=== PATIENT | male | born 1995 | race Caucasian/White ===

== ENCOUNTER 2021-03-07 08:00 | Outpatient (CLI) | payer OTHER | END 2021-03-07 23:59 | disposition home or self-care (01) | LOC: LAB.N 08:00 | PROVIDERS: ATTEND Family Medicine | DX: U07.1 COVID-19 (principal) ==

== ENCOUNTER 2022-05-20 08:00 | Outpatient (CLI) | payer OTHER | END 2022-05-20 23:59 | disposition home or self-care (01) | LOC: LAB.N 08:00 | PROVIDERS: ATTEND Nurse Practitioner | DX: Z11.1 Encounter for screening for respiratory tuberculosis (principal) | CPT/HCPCS: 81599; 86480 ==

== ENCOUNTER 2022-05-22 08:23 | Emergency (ER) | payer OTHER ==
--- NOTE | 2022-05-22 09:05 | ED Physician Documentation ---
PD HPI SYNCOPE - Stated complaint Stated Complaint: FALL/LIGHT HEADED/SOA - Chief complaint Chief Complaint: Neuro - History obtained from History obtained from: Patient - History of Present Illness Witnessed: Witnessed Timing - onset: Today (the patient had COVID booster yesterday and started feeling aches/chills/feverish and some headache last evening and worse overnight. did not sleep well due to symptoms. No vomiting nor diarrhea. this morning, feeling weak. got into hot shower and felt lightheaded and then lost strength and fell.) Duration: Seconds (he did not have LOC but remembers the fall and being weak. Struck periorbital area and the backward struck back of head. Lay on floor of tub and had some water around his back but was not underwater. Patient says he felt short of breath after the fall and was breathing deep and had hand/feet spasms.) Preceding symptoms: Headache (initially with striking head. Mostly gone here in ER.), Light headed, Generalized weakness Associated symptoms: Headache, Dyspnea (after the falling). No: Chest pain, Abdominal pain Contributing factors: Recent med change (had COVID vaccine yesterday.) Injury occurred: Fell, Head injury. No: Neck injury Similar symptoms before: Has not had sx before Recently seen: Other (COVID vaccine yesterday. was feeling okay prior to that.) Review of Systems Constitutional: reports: Chills, Myalgias, Fatigue (just since last evening). denies: Fever Nose: denies: Rhinorrhea / runny nose, Congestion Throat: denies: Sore throat Cardiac: denies: Chest pain / pressure, Palpitations Respiratory: reports: Dyspnea. denies: Cough GI: denies: Abdominal Pain, Nausea, Vomiting, Diarrhea Skin: denies: Rash Neurologic: reports: Near syncope. denies: Altered mental status PD PAST MEDICAL HISTORY - Past Medical History Cardiovascular: None Respiratory: None Neuro: None Endocrine/Autoimmune: None - Present Medications Home Medications: Ambulatory Orders Medication Instructions Recorded Confirmed No Known Home Medications 05/22/22 05/22/22 - Allergies Allergies/Adverse Reactions: Allergies Allergy/AdvReac Type Severity Reaction Status Date / Time amoxicillin Allergy Hives Verified 05/22/22 08:39 PD ED PE NORMAL - Vitals Vital signs reviewed: Yes - General General: Alert and oriented X 3, No acute distress, Well developed/nourished - HEENT HEENT: PERRL, EOMI, Other (some facial tenderness left cheek. No bony deformity. ) - Neck Neck: Supple, no meningeal sign, No bony TTP, No adenopathy - Cardiac Cardiac: RRR, No murmur, No rub - Respiratory Respiratory: Clear bilaterally - Abdomen Abdomen: Soft, Non tender - Derm Derm: Normal color, Warm and dry - Extremities Extremities: Normal ROM s pain - Neuro Neuro: Alert and oriented X 3, No motor deficit, No sensory deficit, Normal speech Eye Opening: Spontaneous Motor: Obeys Commands Verbal: Oriented GCS Score: 15 Results - Vitals Vitals: Vital Signs - 24 hr 05/22/22 05/22/22 05/22/22 08:36 09:47 11:40 Temperature 36.8 C Heart Rate 114 H 99 88 Respiratory 16 19 20 Rate Blood Pressure 132/83 H 132/80 H 123/69 O2 Saturation 95 97 99 Oxygen O2 Source Room air - EKG (time done) 08:42 Rate: Rate (enter#) (119) Rhythm: Sinus tachycardia [place]: Normal Intervals: Normal [place] QRS: Normal Ischemia: Normal ST segments. No: ST elevation c/w ischemia, ST depression - Labs Labs: Laboratory Tests 05/22/22 05/22/22 05/22/22 09:40 09:40 09:47 WBC 8.2 RBC 5.64 Hgb 15.4 Hct 46.0 MCV 81.6 MCH 27.3 MCHC 33.5 RDW 13.1 Plt Count 216 MPV 8.5 Neut # (Auto) 6.6 Lymph # (Auto) 0.9 L [place] # (Auto) 0.6 Eos # (Auto) 0.0 Baso # (Auto) 0.0 Absolute Nucleated RBC 0.00 Nucleated RBC % 0.0 Sodium 136 Potassium 4.0 Chloride 100 L Carbon Dioxide 25 Anion Gap 11.0 BUN 18 Creatinine 1.2 Estimated GFR (MDRD) 72 L Glucose 111 H POC Whole Bld Glucose 105 H Calcium 9.8 Total Bilirubin 0.7 AST 32 ALT 37 Alkaline Phosphatase 51 Total Protein 7.5 Albumin 4.8 Globulin 2.7 Albumin/Globulin Ratio 1.8 Lipase 29 PD MEDICAL DECISION MAKING - ED course Complexity details: considered differential (sounds like postural syncope and associated with hot shower/vasodilation. Had vaccine side effects overnight. tachycardic in ER, so given iV fluids with improvement in HR. ), d/w patient Departure - Departure Disposition: 01 Home, Self Care Clinical Impression: Syncope and collapse, [place] spasm Post-vaccination reaction Qualifiers: Encounter type: initial encounter Qualified Code(s): T88.1XXA - Other complications following immunization, not elsewhere classified, initial encounter Head contusion Qualifiers: Encounter type: initial encounter Contusion of head detail: orbital tissues Laterality: left Qualified Code(s): S05.12XA - Contusion of eyeball and orbital tissues, left eye, initial encounter Mild concussion Qualifiers: Encounter type: initial encounter Loss of consciousness presence/duration: with LOC of 30 min or less Qualified Code(s): S06.0X1A - Concussion with loss of consciousness of 30 minutes or less, initial encounter Condition: Stable Record reviewed to determine appropriate education?: Yes Instructions: ED Concussion, ED Syncope Vasovagal Follow-Up: LUCIA Wong [Provider Group] Comments: Stay well-hydrated through the day today. Consider some Tylenol or ibuprofen every 4-6 hours regularly for the next day or so presuming you will still have some aches and fevers up and down. Typically the post vaccination symptoms only last 1 to 2 days. The description of your injury and symptoms sound likely to have been a vasovagal or postural fainting episode related to not feeling well after the vaccine. Your hand and leg spasms do not sound like seizures but sound more like an effect of either hitting your head/mild concussive and in combination with hyperventilating. You appear well at this time. I would anticipate some soreness in the back and head for in the next day or 2. Rest with light activity today and tomorrow. Recheck with your primary if not fully improved by Tuesday or so. Discharge Date/Time: 05/22/22 11:41
[2022-05-22] MEDS ORDERED: SODIUM CHLORIDE 0.9% 1,000 ML IV STA (09:25)
[2022-05-22 09:49] LABS: BASOPHILS % (AUTO) 0.4 %; EOSINOPHILS % (AUTO) 0.2 %; HGB - HEMOGLOBIN 15.4 g/dL (14.0-18.0); LYMPHOCYTES # (AUTO) 0.9 10^3/uL (1.5-3.5); MEAN CORPUSCULAR HEMOGLOBIN 27.3 pg (27.0-31.0); MEAN CORPUSCULAR HGB CONC 33.5 g/dL (32.0-36.0); MEAN CORPUSCULAR VOLUME 81.6 fL (80.0-94.0); MEAN PLATELET VOLUME 8.5 fL (7.4-11.4); MONOCYTES # (AUTO) 0.6 10^3/uL (0.0-1.0); MONOCYTES % (AUTO) 7.2 %; NEUTROPHILS # (AUTO) 6.6 10^3/uL (1.5-6.6); NEUTROPHILS % (AUTO) 80.8 %; PLT - PLATELET COUNT 216 10^3/uL (130-450); RED BLOOD COUNT 5.64 10^6/uL (4.70-6.10); RED CELL DISTRIBUTION WIDTH 13.1 % (12.0-15.0); WHITE BLOOD COUNT 8.2 x10^3/uL (4.8-10.8)
[2022-05-22 10:10] LABS: ALBUMIN 4.8 g/dL (3.2-5.5); ALBUMIN/GLOBULIN RATIO 1.8 (1.0-2.2); BILIRUBIN,TOTAL 0.7 mg/dL (0.2-1.0); CALCIUM 9.8 mg/dL (8.5-10.3); CREATININE 1.2 mg/dL (0.6-1.2); TOTAL PROTEIN 7.5 g/dL (6.7-8.2)
[2022-05-22 11:41] VITALS: BP 123/69
== END 2022-05-22 11:41 | disposition home or self-care (01) ==
LOC: ED 08:23
DX: T88.1XXA Other complications following immunization, not elsewhere classified, initial encounter (principal); R29.0 Tetany; S05.12XA Contusion of eyeball and orbital tissues, left eye, initial encounter; S06.0X1A Concussion with loss of consciousness of 30 minutes or less, initial encounter; W19.XXXA Unspecified fall, initial encounter
CPT/HCPCS: 36415; 80053; 83690; 84484; 85025; 93005; 99284